=== PATIENT | female | born 1985 ===

== ENCOUNTER 2017-04-09 10:14 | Emergency (ER) | payer SELFPAY ==
[2017-04-09 10:17] VITALS: BP 111/67; PULSE 54; TEMP 97
[2017-04-09 10:18] VITALS: BMI 32.4
[2017-04-09 10:22] VITALS: O2SAT 98
--- NOTE | 2017-04-09 10:38 | ED PDOC ---
HPI: Back Chief Complaint (Provider): Low back pain when walking History Per: Patient History/Exam Limitations: no limitations Onset/Duration Of Symptoms: Days (1) Current Symptoms Are (Timing): Still Present Quality Of Discomfort: Sharp, Aching Severity: Severe Pain Scale Rating Of: 7 Previous Symptoms: None Associated Symptoms: None Exacerbating Factor(s): Turning, Movement Additional Complaint(s): 31 yo F w/o PMHx presents to ER with R sided lower back pain since yesterday evening after work. She moves a lot of heavy objects at work and began to have her lower back tense up yesterday evening, with it becoming much more severe this morning when she awoke. She describes the pain as 7-8/10, located in her low back on the right side, radiating into her hip and towards the anterior aspect of her right thigh. She denies h/o urinary retention/incontinence, bowel retention/incontinence, foot drop, fevers/chills, nausea, vomiting, kidney stones, dysuria, hematuria, or vaginal discharge. Patient states experiencing similar pain once before, but on her Left side a few years ago. She also states being treated with an antibiotic a few years ago for a kidney infection, though she does not know the cause of such infection. Otherwise, she denies any chest pain, palpitations, SOB, dyspnea, cough, abdominal pain, or other myalgias. <Emory Patrick - Last Filed: 04/09/17 13:53> <Shantel Wild - Last Filed: 04/09/17 13:59> Time Seen by Provider: 04/09/17 10:28 Chief Complaint (Nursing): Back Pain Past Medical History Reviewed: Historical Data, Nursing Documentation, Vital Signs Vital Signs: Last Vital Signs Temp 97 F L 04/09/17 10:17 Pulse 54 L 04/09/17 10:17 Resp BP 111/67 04/09/17 10:17 Pulse Ox 98 04/09/17 10:20 - Surgical History Surgical History: Appendectomy - Family History Family History: States: Unknown Family Hx <Emory Patrick - Last Filed: 04/09/17 13:53> Vital Signs: Last Vital Signs Temp 97 F L 04/09/17 10:17 Pulse 54 L 04/09/17 10:17 Resp BP 111/67 04/09/17 10:17 Pulse Ox 98 04/09/17 13:55 <Shantel Wild - Last Filed: 04/09/17 13:59> - Home Medications Home Medications: Ambulatory Orders Medication Instructions Recorded Ciprofloxacin HCl [Cipro] 500 mg PO BID #20 tab 03/25/15 Famotidine [Pepcid] 20 mg PO Q12H #20 tab 03/25/15 Ciprofloxacin/Ciprofloxa HCl 500 mg PO BID #20 ter 07/17/15 [Ciprofloxacin] traMADol [Ultram] 50 mg PO Q6H PRN #15 tab 07/17/15 Ibuprofen [Motrin] 600 mg PO TID 7 Days 01/07/16 Nitrofurantoin Macrocrystals 100 mg PO BID #10 cap 07/03/16 [Macrobid] Doxycycline Hyclate 100 mg PO Q12 #20 tab 09/21/16 Naproxen [Naprosyn] 500 mg PO BID PRN #14 tablet 09/21/16 Cyclobenzaprine [Cyclobenzaprine 10 mg PO HS PRN #10 tab 04/09/17 HCl] Naproxen [Naprosyn] 500 mg PO Q12 #28 tablet 04/09/17 - Allergies Allergies/Adverse Reactions: Allergies Allergy/AdvReac Type Severity Reaction Status Date / Time No Known Allergies Allergy Verified 09/21/16 12:45 Supervising Attending Note - Supervising Attending Note The Documented history was done by the: Physician Certified Home Health Aide The documented physical exam was done by the: Physician Certified Home Health Aide The documented procedures were done by the: Physician Certified Home Health Aide - Attestation: I have personally seen and examined this patient.: Yes I have fully participated in the care of the patient.: Yes I have reviewed all pertinent clinical information: Yes <Shantel Wild - Last Filed: 04/09/17 13:59> Review of Systems ROS Statement: Except As Marked, All Systems Reviewed And Found Negative (see HPI) <Emory Patrick - Last Filed: 04/09/17 13:53> Physical Exam - Reviewed Nursing Documentation Reviewed: Yes Vital Signs Reviewed: Yes - Physical Exam Appears: Positive for: Non-toxic, Uncomfortable Head Exam: Positive for: ATRAUMATIC, NORMAL INSPECTION, NORMOCEPHALIC Skin: Positive for: Normal Color, Warm, Dry Eye Exam: Positive for: Normal appearance, EOMI, PERRL ENT: Positive for: Normal ENT Inspection Neck: Positive for: Normal, Painless ROM Cardiovascular/Chest: Positive for: Regular Rate, Rhythm. Negative for: Edema Respiratory: Positive for: Normal Breath Sounds. Negative for: Wheezing, Respiratory Distress Back: Positive for: Other (TTP of Right sided paraspinal muscles) Extremity: Negative for: Pedal Edema, Calf Tenderness Neurologic/Psych: Positive for: Alert, mobile tester II-XII, Oriented <Emory Patrick - Last Filed: 04/09/17 13:53> - ECG O2 Sat by Pulse Oximetry: 98 - Progress ED Course And Treament: 31 yo F w/o PMHx presents to ER with R sided lower back pain since yesterday evening -Udip -Upreg -XR Lumbar Spine -Toradol 30mg IM x1 -Flexeril 10mg PO x1 Update 1340: -Patient had taken short nap, and upon awakening described her pain as being significantly reduced -XR wnl, Udip wnl -Plan to discharge pt with Naproxen, Flexeril, Urinary & Bowel precautions Condition: Re-examined, Improved <Emory Patrick - Last Filed: 04/09/17 13:53> Disposition - Patient ED Disposition Is Patient to be Admitted: No - Disposition Disposition: Routine/Home Disposition Time: 13:45 <Emory Patrick - Last Filed: 04/09/17 13:53> <Shantel Wild - Last Filed: 04/09/17 13:59> - Clinical Impression Clinical Impression: Low back pain, Sciatica of right side - Disposition Referrals: [facility] [place] [Outside] Condition: GOOD Additional Instructions: Regrese al de si experimenta retencin urinaria, incontinencia urinaria, intestino, retencin, incontinencia intestinal o incapacidad para levantar el pie. Prescriptions: Cyclobenzaprine [Cyclobenzaprine HCl] 10 mg PO HS PRN #10 tab PRN Reason: Pain, Severe (8-10) Naproxen [Naprosyn] 500 mg PO Q12 #28 tablet Instructions: Acute Low Back Pain (GEN) Forms: [facility] ED School/Work Excuse Print Language: FRENCH
--- NOTE | 2017-04-09 12:36 | RAD ---
PROCEDURE: Radiographs of the Lumbar Spine. HISTORY: low back pain COMPARISON: None available. FINDINGS: BONES: Alignment appears satisfactory. No listhesis. No acute displaced fracture identified. DISC SPACES: Unremarkable. OTHER FINDINGS: None. IMPRESSION: No acute displaced fracture or subluxation identified.
== END 2017-04-09 14:13 | disposition home or self-care (01) ==
LOC: H.ER 10:14
DX: M54.41 Lumbago with sciatica, right side (principal)

== ENCOUNTER 2017-11-29 12:43 | Emergency (ER) | payer OTHER ==
[2017-11-29 12:43] VITALS: BMI 32.4
[2017-11-29 13:06] VITALS: BP 104/68; PULSE 74; RESP 20; TEMP 97; O2SAT 98
[2017-11-29 14:50] LABS: BASO % 0.4 % (0.0-2.0); EOS # 0.1 K/uL (0.0-0.7); EOS % 0.8 % (0.0-4.0); HEMOGLOBIN 14.9 g/dL (12.0-16.0); LYMPH # 2.8 K/uL (1.0-4.3); LYMPH % 27.9 % (20.0-40.0); MEAN CELL VOLUME 90.2 fl (81.0-99.0); MEAN CORPUSCULAR HEMOGLOBIN 30.8 pg (27.0-31.0); MEAN CORPUSCULAR HGB CONC 34.1 g/dL (33.0-37.0); MEAN PLATELET VOLUME 8.4 fl (7.2-11.7); MONO # 0.9 K/uL (0.0-0.8); MONO % 8.9 % (0.0-10.0); NEUT # 6.1 K/uL (1.8-7.0); RBC 4.84 Mil/uL (3.80-5.20); RED CELL DISTRIBUTION WIDTH 13.4 % (11.5-14.5); WHITE BLOOD COUNT 9.9 K/uL (4.8-10.8)
--- NOTE | 2017-11-29 14:57 | ED PDOC ---
HPI: Abdomen Time Seen by Provider: 11/29/17 13:57 Chief Complaint (Nursing): Abdominal Pain Chief Complaint (Provider): Abdominal Pain History Per: Patient Onset/Duration Of Symptoms: Other (x 2 weeks) Current Symptoms Are (Timing): Still Present Additional Complaint(s): Ms. Cameron is a 32 year old female who presents to the emergency department with abdominal pain. Patient states she has had abdominal discomfort (epigastric) for 2 weeks associated with nausea. Reports discomfort with movement sometimes when she eats and sometimes when she doesn't. Reports constipation with no black or bloody stool. Patient admits to taking pepto bismol with no relief. Patient states 5 days ago, she developed midline back pain with no flank pain. Patient took ibuprofen with minimal relief. Denies any fever, chills, urinary symptoms, vaginal discharge or bleeding. Last menstrual period earlier this month, but was abnormally short. PMD: No Family Provider Past Medical History Reviewed: Historical Data, Nursing Documentation, Vital Signs Vital Signs: Last Vital Signs Temp 97.0 F L 11/29/17 13:04 Pulse 74 11/29/17 13:04 Resp 20 11/29/17 13:04 BP 104/68 11/29/17 13:04 Pulse Ox 98 11/29/17 15:13 - Medical History PMH: No Chronic Diseases - Surgical History Surgical History: Appendectomy - Family History Family History: States: Unknown Family Hx - Social History Current smoker - smoking cessation education provided: No Alcohol: None Drugs: Denies - Home Medications Home Medications: Ambulatory Orders Medication Instructions Recorded Ciprofloxacin HCl [Cipro] 500 mg PO BID #20 tab 03/25/15 Famotidine [Pepcid] 20 mg PO Q12H #20 tab 03/25/15 Ciprofloxacin/Ciprofloxa HCl 500 mg PO BID #20 ter 07/17/15 [Ciprofloxacin] traMADol [Ultram] 50 mg PO Q6H PRN #15 tab 07/17/15 Ibuprofen [Motrin] 600 mg PO TID 7 Days tab 01/07/16 Nitrofurantoin Macrocrystals 100 mg PO BID #10 cap 07/03/16 [Macrobid] Doxycycline Hyclate 100 mg PO Q12 #20 tab 09/21/16 Naproxen [Naprosyn] 500 mg PO BID PRN #14 tablet 12/05/16 Cyclobenzaprine [Cyclobenzaprine 10 mg PO HS PRN #10 tab 04/09/17 HCl] Naproxen [Naprosyn] 500 mg PO Q12 #28 tablet 04/09/17 Cyclobenzaprine [Cyclobenzaprine 10 mg PO BID PRN #14 tab 08/23/17 HCl] Naproxen [Naprosyn] 1 tab PO BID PRN #30 tab 11/29/17 Omeprazole Magnesium [Prilosec Otc] 20 mg PO DAILY #30 tcp 11/29/17 Polyethylene Glycol 3350 [Miralax] 17 gm PO DAILY PRN #1 bottle 11/29/17 - Allergies Allergies/Adverse Reactions: Allergies Allergy/AdvReac Type Severity Reaction Status Date / Time No Known Allergies Allergy Verified 11/29/17 13:04 Review of Systems ROS Statement: Except As Marked, All Systems Reviewed And Found Negative Constitutional: Positive for: Other (Nausea). Negative for: Fever, Chills Gastrointestinal: Positive for: Abdominal Pain (Epigastric), Constipation. Negative for: Melena, Hematochezia, Other (flank pain) Genitourinary Female: Negative for: Dysuria, Hematuria, Vaginal Discharge, Vaginal Bleeding Musculoskeletal: Positive for: Back Pain (Midline) Physical Exam - Reviewed Nursing Documentation Reviewed: Yes Vital Signs Reviewed: Yes - Physical Exam Appears: Positive for: Non-toxic, In Acute Distress Head Exam: Positive for: ATRAUMATIC, NORMOCEPHALIC Skin: Positive for: Warm, Dry Eye Exam: Positive for: EOMI, PERRL ENT: Negative for: Pharyngeal Erythema, Tonsillar Exudate Neck: Positive for: Painless ROM, Supple Cardiovascular/Chest: Positive for: Regular Rate, Rhythm, Chest Non Tender. Negative for: Murmur Respiratory: Positive for: Normal Breath Sounds. Negative for: Respiratory Distress Gastrointestinal/Abdominal: Positive for: Soft, Tenderness (epigastric). Negative for: Mass, Distended, Guarding, Rebound Back: Positive for: Normal Inspection, Other (bilateral thoracic paraspinal ttp) . Negative for: Vertebral Tenderness, Decreased ROM Extremity: Positive for: Normal ROM. Negative for: Deformity Neurologic/Psych: Positive for: Alert. Negative for: Motor/Sensory Deficits - Laboratory Results Result Diagrams: 11/29/17 14:39 11/29/17 14:39 - ECG O2 Sat by Pulse Oximetry: 98 (RA) Pulse Ox Interpretation: Normal Medical Decision Making Medical Decision Making: Time: 14:28 Impression(s): Abdominal discomfort and back pain Differentials include, but not limited to: Gastritis, Constipation, Pancreatitis , Cholelithiasis Plan: - CMP - Lipase Stat - ED Urine - ED Urine Dipstick - CBC - Pepcid 20 mg IVP STAT - Zofran Inj 4 mg IVP Once Udip with leuks, sent for UA Bloodwork with no emergently significant abnormalities Scribe Attestation: Documented by Justice Ramsey, acting as a scribe for Helen Rondon MD. Provider Scribe Attestation: All medical record entries made by the Scribe were at my direction and personally dictated by me. I have reviewed the chart and agree that the record accurately reflects my personal performance of the history, physical exam, medical decision making, and the department course for this patient. I have also personally directed, reviewed, and agree with the discharge instructions and disposition. Disposition - Clinical Impression Clinical Impression: Abdominal pain Counseled Patient/Family Regarding: Studies Performed, Diagnosis, Need For Followup, Rx Given - Disposition [facility] - 12/[facility]/17 ([facility] 2-3 [facility]) Disposition: Routine/Home Disposition Time: 17:00 Condition: GOOD Additional Instructions: ALIRIO MUCHO LIQUIDOS Y COME BLANDITO COMIDOS LICHA MEDICAMENTOS A RECETO VISITA A [facility] EN 2-3 BRASHER A CHEQAR DE NEUVO REGRESA SI SIENTE PEOR. Prescriptions: Naproxen [Naprosyn] 1 tab PO BID PRN #30 tab PRN Reason: Pain Omeprazole Magnesium [Prilosec Otc] 20 mg PO DAILY #30 tcp Polyethylene Glycol 3350 [Miralax] 17 gm PO DAILY PRN #1 bottle PRN Reason: Constipation Instructions: Constipation (ED), Abdominal Pain (ED) Forms: [facility] ED School/Work Excuse Print Language: BAHAMIAN
[2017-11-29 14:59] LABS: ALB/GLOB RATIO 1.4 (1.0-2.1); ALBUMIN 4.7 g/dL (3.5-5.0); CALCIUM 9.3 mg/dL (8.4-10.2); GFR AFRICAN-AMERICAN > 60; GFR NON-AFRICAN AMERICAN > 60; LIPASE 85 U/L (23-300)
[2017-11-29 15:03] LABS: ALT/SGPT 28 U/L (9-52); AST/SGOT 21 U/L (14-36); BLOOD UREA NITROGEN 17 mg/dl (7-17)
[2017-11-29 16:34] LABS: SQUAMOUS EPITHIAL 11 /hpf (0-5); URINE BACTERIA OCC (<OCC); URINE BILIRUBIN NEGATIVE (NEGATIVE); URINE BLOOD NEGATIVE (NEGATIVE); URINE CLARITY SLIGHTY-CLOUDY (Clear); URINE COLOR STRAW (YELLOW); URINE GLUCOSE (UA) NEG (Normal); URINE LEUKOCYTE ESTERASE SMALL Leu/uL (Negative); URINE NITRATE NEGATIVE (NEGATIVE); URINE PROTEIN NEGATIVE (NEGATIVE); URINE UROBILINOGEN 0.2-1.0 mg/dL (0.2-1.0)
--- NOTE | 2017-11-29 16:55 | US ---
HISTORY: epigastric and back pain COMPARISON: 08/23/2017 abdominal ultrasound TECHNIQUE: Sonographic evaluation of the abdomen. FINDINGS: LIVER: Measures 12.7 cm. Patent portal vein. Portal venous flow: Hepatopetal. Unremarkeable echogenicity of the liver parenchyma. No mass. No intrahepatic bile duct dilatation. GALLBLADDER: Unremarkable. No gallstones. COMMON BILE DUCT: Measures 4.9 mm. No stones. No dilatation. PANCREAS: Obscured by overlying bowel gas. Non diagnostic assessment of the pancreas RIGHT KIDNEY: Measures 5.2 x 10cm. Normal echogenicity. No calculus, mass, or hydronephrosis. LEFT KIDNEY: Measures 4.8 x 10.4cm. Normal echogenicity. No calculus, mass, or hydronephrosis. SPLEEN: Normal in size and contour. No mass. AORTA: No aneurysmal dilatation. IVC: Unremarkable. OTHER FINDINGS: None. IMPRESSION: Unremarkable abdominal sonogram.No significant interval change compared to the prior examination(s). Limitations of the current examination: Nondiagnostic study of the pancreas.
== END 2017-11-29 17:29 | disposition home or self-care (01) ==
LOC: H.ER 12:43
DX: R10.9 Unspecified abdominal pain (principal)
CPT/HCPCS: 76700; 80053; 81003; 81025; 83690; 85025; 96374; 96375; 99283; J2405

== ENCOUNTER 2018-06-28 09:18 | Emergency (ER) | payer OTHER ==
[2018-06-28 09:20] VITALS: BMI 32.4
[2018-06-28 10:00] VITALS: RESP 18; TEMP 97; O2SAT 100
--- NOTE | 2018-06-28 10:00 | ED PDOC ---
HPI: Chest Pain Time Seen by Provider: 06/28/18 09:36 Chief Complaint (Nursing): Chest Pain History Per: Patient History/Exam Limitations: language barrier Onset/Duration Of Symptoms: Days Current Symptoms Are (Timing): Still Present Severity: Moderate Quality: Sharp, Tightness Associated Symptoms: Other (flu like symptoms) Exacerbating Factors: Deep Breathing Alleviating Factors: Other (Tylenol ) Additional Complaint(s): CC: chest pain HPI: 32 YO female with no sig PMHx presents to [facility] ED for chest pain. Chest pain started last night, located in the "middle of the chest", worse with deep inspiration and cough. Denies palpitations, diaphoresis and no relation with activity. Pt has been having flu like symptoms for the past few days with mild productive cough (clear/white sputum). Denies fever and chills. PMD: none PMHx: GERD SurgHx: appendectomy FHx: hx of DM in father SHx: denies ETOH, smoking and illicit drug use Allergies: NKDA Meds: Tylenol, mucinex Past Medical History Vital Signs: Last Vital Signs Temp 97 F L 06/28/18 09:53 Pulse 74 06/28/18 09:53 Resp 18 06/28/18 09:53 BP Pulse Ox 100 06/28/18 11:50 - Medical History PMH: Gastritis - Surgical History Surgical History: Appendectomy - Family History Family History: States: Diabetes - Living Arrangements Living Arrangements: With Family - Social History Current smoker - smoking cessation education provided: No Alcohol: None Drugs: Denies - Home Medications Home Medications: Ambulatory Orders Medication Instructions Recorded Ciprofloxacin HCl [Cipro] 500 mg PO BID #20 tab 03/25/15 Famotidine [Pepcid] 20 mg PO Q12H #20 tab 03/25/15 Ciprofloxacin/Ciprofloxa HCl 500 mg PO BID #20 ter 07/17/15 [Ciprofloxacin] traMADol [Ultram] 50 mg PO Q6H PRN #15 tab 07/17/15 Ibuprofen [Motrin] 600 mg PO TID 7 Days tab 01/07/16 Nitrofurantoin Macrocrystals 100 mg PO BID #10 cap 07/03/16 [Macrobid] Doxycycline Hyclate 100 mg PO Q12 #20 tab 09/21/16 Naproxen [Naprosyn] 500 mg PO BID PRN #14 tablet 09/21/16 Cyclobenzaprine [Cyclobenzaprine 10 mg PO HS PRN #10 tab 04/09/17 HCl] Naproxen [Naprosyn] 500 mg PO Q12 #28 tablet 04/09/17 Cyclobenzaprine [Cyclobenzaprine 10 mg PO BID PRN #14 tab 08/23/17 HCl] Naproxen [Naprosyn] 1 tab PO BID PRN #30 tab 11/29/17 Omeprazole Magnesium [Prilosec Otc] 20 mg PO DAILY #30 tcp 11/29/17 Polyethylene Glycol 3350 [Miralax] 17 gm PO DAILY PRN #1 bottle 11/29/17 - Allergies Allergies/Adverse Reactions: Allergies Allergy/AdvReac Type Severity Reaction Status Date / Time No Known Allergies Allergy Verified 02/28/18 10:09 EDER Risk Score for UA/NSTEMI - EDER Risk Score Age > 64: NO 3 or more CAD Risk Factors: NO Known CAD (Stenosis greater than 50%): NO Aspirin use in past 7 days: NO Severe Angina: NO EKG ST changes greater than 0.5mm: NO EDER Score: 0 Risk %: 5% Review of Systems Constitutional: Positive for: Chills. Negative for: Fever Cardiovascular: Positive for: Chest Pain. Negative for: Palpitations, Orthopnea , Edema Respiratory: Positive for: Cough, Sputum. Negative for: Shortness of Breath Gastrointestinal: Negative for: Nausea, Vomiting, Abdominal Pain, Diarrhea, Constipation Genitourinary Female: Negative for: Dysuria, Hematuria Physical Exam - Physical Exam Appears: Positive for: No Acute Distress (wearing a face mask, coughing ) Skin: Positive for: Normal Color Eye Exam: Positive for: EOMI ENT: Positive for: Nasal Congestion, Tonsillar Swelling (mild). Negative for: Pharyngeal Erythema, Tonsillar Exudate Cardiovascular/Chest: Positive for: Regular Rate, Rhythm, Other (chest tender to palpation ). Negative for: Murmur Respiratory: Positive for: Normal Breath Sounds. Negative for: Crackles, Wheezing Gastrointestinal/Abdominal: Positive for: Normal Exam, Soft. Negative for: Tenderness Back: Positive for: Normal Inspection. Negative for: L CVA Tenderness, R CVA Tenderness Extremity: Positive for: Normal ROM. Negative for: Tenderness, Pedal Edema Neurologic/Psych: Positive for: Alert - ECG O2 Sat by Pulse Oximetry: 100 - Progress ED Course And Treament: 32 YO Female with chest pain and flu like symptoms. -rapid flu -CXR -Motrin for pain -upreg 12:05: pt seen and re-evaluated NAD, looks comfortable Improvement in chest pain, feels better Pending CXR Flu is neg Patient endorsed to Dr. Rosado Disposition - Clinical Impression Clinical Impression: Chest pain - Disposition Disposition: Transfer of Care Disposition Time: 12:30 Condition: STABLE Forms: [employer] (Icelandic)
--- NOTE | 2018-06-28 12:30 | ED PDOC ---
- ECG O2 Sat by Pulse Oximetry: 100 Disposition - Clinical Impression Clinical Impression: Bronchitis - POA Present On Arrival: None - Disposition Referrals: [facility] [Outside] Disposition: Routine/Home Disposition Time: 12:29 Prescriptions: Azithromycin [Zithromax] 250 mg PO DAILY #6 tab Naproxen [Naprosyn] 500 mg PO Q12H #20 tab Instructions: Acute Bronchitis Forms: [employer] (Georgian)
--- NOTE | 2018-06-28 12:42 | RAD ---
Date of service: 06/28/2018 HISTORY: chest pain COMPARISON: No prior. TECHNIQUE: Chest PA and lateral FINDINGS: LUNGS: No active pulmonary disease. PLEURA: No significant pleural effusion identified. No pneumothorax apparent. CARDIOVASCULAR: Normal. OSSEOUS STRUCTURES: No significant abnormalities. VISUALIZED UPPER ABDOMEN: Normal. OTHER FINDINGS: None. IMPRESSION: No acute cardiopulmonary disease appreciated.
[2018-06-28 17:25] VITALS: BP 106/63; PULSE 70
== END 2018-06-28 12:45 | disposition home or self-care (01) ==
LOC: H.ER 09:18
DX: J40 Bronchitis, not specified as acute or chronic (principal)